=== PATIENT | female | born 1995 | race Caucasian/White ===

== ENCOUNTER 2019-09-01 08:33 | Day surgery (SDC) | payer BC ==
[2019-09-01] VITALS (15 sets, daily range): BP systolic 92–110; BP diastolic 51–71
[~2019-09-01] VITALS: Ht 160 cm; Wt 59.0 kg
[2019-09-01] MEDS ORDERED: FENTANYL CITRATE/PF 50MCG/ML 2ML VIAL ONE (08:51)
[2019-09-01] MEDS ORDERED: SODIUM BICARBONATE 4% (2.4MEQ) 5ML VIAL IV ONE (08:52)
[2019-09-01] MEDS ORDERED: LIDOCAINE HCL 1% 20ML VIAL (Pyxis) INJ ONE (08:52)
[2019-09-01] MEDS ORDERED: FENTANYL CITRATE/PF 50MCG/ML 2ML VIAL IV ONE (10:15)
[2019-09-01] MEDS ORDERED: HYDROCODONE/ACETAMINOPHEN 5/325MG TABLET PO PRN (10:15)
[2019-09-01 14:19] LABS: HEMOGLOBIN 13.4 g/dL (12.0-16.0)
== END 2019-09-01 15:25 | disposition home or self-care (01) ==
LOC: RAD 08:33
PROVIDERS: ATTEND Internal Medicine Nephrology
DX: R80.9 Proteinuria, unspecified (principal); N18.1 Chronic kidney disease, stage 1; Z79.899 Other long term (current) drug therapy
CPT/HCPCS: 36415; 50200; 76942; 85014; 85018; 88305; 88346; 88348; J3010; J3490; 88313